=== PATIENT | female | born 1990 | race American Indian/Alaskan Native ===

== ENCOUNTER 2018-12-29 03:06 | Outpatient (CLI) | payer OTHER ==
[2018-12-29 03:23] VITALS: BP 111/73
--- NOTE | 2018-12-29 05:20 | Ultrasound Report ---
FINAL REPORT EXAM: US ABDOMEN LIMITED HISTORY: for gall bladder COMPARISONS: None FINDINGS: Grayscale and color Doppler ultrasound evaluation of the right upper abdomen Liver is normal in size and contour. Hepatic parenchymal echogenicity is within normal limits. No par enchymal lesion identified. No intra or extrahepatic biliary ductal dilatation. The common duct measu res approximately 4 millimeters in caliber. The gallbladder is incompletely distended. Gallbladder wall thickness measures 3-4 millimeters. No pe richolecystic edema. Subcentimeter echogenic shadowing gallstones and sludge are present in the gallb ladder neck. Imaged portion of the pancreatic head is sonographically unremarkable. The remainder of the pancreas is not well seen secondary to overlying bowel gas. No abdominal ascites or free fluid in Scott's pouch. The right kidney measures up to 10.6 cm in le ngth and shows hydronephrosis without echogenic shadowing focus to suggest nephrolithiasis. IMPRESSION: Cholelithiasis. The gallbladder is incompletely distended with equivocal wall thickening. Consider [facility] hepatobiliary scan for more specific evaluation of cholecystitis as warranted. Right-sided hydronephrosis. Consider CT if this finding has not been previously documented.
== END 2018-12-29 06:35 | disposition home or self-care (01) ==
LOC: TRG 03:06
PROVIDERS: ATTEND Obstetrics & Gynecology
DX: O62.8 Other abnormalities of forces of labor (principal); Z3A.38 38 weeks gestation of pregnancy
CPT/HCPCS: 76705